=== PATIENT | male | born 1980 | race Caucasian/White ===

== ENCOUNTER 2017-06-02 23:39 | Emergency (ER) | payer SELFPAY ==
[~2017-06-02] VITALS: Ht 175.3 cm; Wt 99.8 kg
[2017-06-02 23:50] VITALS: BP 131/87
[2017-06-03 00:02] VITALS: BP 125/81
== END 2017-06-03 00:02 | disposition home or self-care (01) ==
LOC: MED 23:39
DX: L02.01 Cutaneous abscess of face (principal)
CPT/HCPCS: 99283

== ENCOUNTER 2018-03-24 22:08 | Emergency (ER) | payer MEDICAID ==
[~2018-03-24] VITALS: Ht 175.3 cm; Wt 99.8 kg
[2018-03-24 22:15] VITALS: BP 148/88
--- NOTE | 2018-03-24 22:21 | NUR ---
PT TAKEN TO BED 11
--- NOTE | 2018-03-24 22:32 | NUR ---
PT BIB SELF FOR ABCESS ON L CHEEK. PT STATES HE HAD IT DRAINED AT [facility] 2 DAYS AGO, SINCE THEN PAIN HAS INCREASED. PT REPORTS STABBING PAIN AT 10/10. HARD SWOLLEN MASS THAT IS TENDER TO TOUCH ON L CHEECK. NO EYRHTEMA PRESNT. ER TO SEE PT. SAFETY PRECAUTIONS IN PLACE, WILL CONTINUE TO MONITOR.
--- NOTE | 2018-03-24 22:42 | NUR ---
Dr. Ruth evaluating patient at bedside.
[2018-03-24] MEDS ORDERED: LIDOCAINE 1% 500 MG/50 ML VIAL INJ SCH (22:45)
[2018-03-24] MEDS ORDERED: SULFAMETH/TRIMETH DS 800/160MG 1 TAB PO ONE (22:45)
[2018-03-24] MEDS ORDERED: LIDOCAINE 2% 1000 MG/50 ML VIAL INJ ONE (22:54)
--- NOTE | 2018-03-24 23:05 | NUR ---
DR GOOD PERFORMING BEDSIDE PROCEDURE AT THIS TIME.
--- NOTE | 2018-03-24 23:17 | NUR ---
MAYCOL CRUZ COVERING WOUND WITH 4X4 GAUZE AT THIS TIME
[2018-03-24 23:30] VITALS: BP 138/82
--- NOTE | 2018-03-24 23:30 | NUR ---
Patient discharged with v/s stable. Written and verbal after care instructions given and explained. Patient alert, oriented and verbalized understanding of instructions. Ambulatory with steady gait. All questions addressed prior to discharge. ID band removed. Patient advised to follow up with PMD. Rx of IBUPROFEN 800MG AND BACTRIM 800MG-160MG given. Patient educated on indication of medication including possible reaction and side effects. Opportunity to ask questions provided and answered.
== END 2018-03-24 23:30 | disposition home or self-care (01) ==
LOC: MED 22:08
DX: L02.01 Cutaneous abscess of face (principal)
CPT/HCPCS: 10060; 99283; J2001

== ENCOUNTER 2018-03-26 14:28 | Emergency (ER) | payer MEDICAID ==
[~2018-03-26] VITALS: Ht 185.4 cm; Wt 100.0 kg
[2018-03-26 14:45] VITALS: BP 131/79
--- NOTE | 2018-03-26 16:39 | NUR ---
38 yo m bib self for recheck from abscess drainage on thursday to left cheek. denies n/v/d/fevers. still taking the abx prescribed here.
[2018-03-26 16:41] VITALS: BP 131/79
--- NOTE | 2018-03-26 16:42 | NUR ---
Patient discharged with v/s stable. Written and verbal after care instructions given and explained. Patient verbalized understanding. Ambulatory with steady gait. All questions addressed prior to discharge. Advised to follow up with PMD.
== END 2018-03-26 16:42 | disposition home or self-care (01) ==
LOC: MED 14:28
DX: L02.01 Cutaneous abscess of face (principal)
CPT/HCPCS: 99283

== ENCOUNTER 2018-07-06 03:50 | Emergency (ER) | payer SELFPAY ==
[~2018-07-06] VITALS: Ht 175.3 cm; Wt 95.3 kg
[2018-07-06 03:59] VITALS: BP 116/78
--- NOTE | 2018-07-06 04:02 | NUR ---
PT AMBULATED TO BED 4.
--- NOTE | 2018-07-06 04:11 | NUR ---
BIB SELF REPORTING WAKING UP WITH LEFT LOWER BACK PAIN AROUND 0000. STATES THE PAIN MOVES TOWARDS THE MIDDLE OF HIS BACK. DENIES PAINFUL URINATION OR FREQUENCY. NO NVD, FEVER, COUGH. DENIES OTHER SYMPTOMS AT THIS TIME. ERMD MADE AWARE. BED IN LOW LOCKED POSTION.
[2018-07-06] MEDS ORDERED: IBUPROFEN 800 MG TAB PO ONE (04:15)
[2018-07-06 06:12] VITALS: BP 116/78
== END 2018-07-06 05:06 | disposition home or self-care (01) ==
LOC: MED 03:50
DX: S39.012A Strain of muscle, fascia and tendon of lower back, initial encounter (principal); X58.XXXA Exposure to other specified factors, initial encounter; Y93.89 Activity, other specified; Y92.89 Other specified places as the place of occurrence of the external cause; Y99.8 Other external cause status
CPT/HCPCS: 72100; 99283

== ENCOUNTER 2019-03-18 16:59 | Emergency (ER) | payer SELFPAY ==
[~2019-03-18] VITALS: Ht 177.8 cm; Wt 81.6 kg
[2019-03-18 17:14] VITALS: BP 116/80
--- NOTE | 2019-03-18 17:27 | NUR ---
39 Y/O M C/O UPPER ABDOMINAL PAIN 10/10 WITH BLOATING. BOWEL SOUNDS ACTIVE ALL FOUR QUADRANTS, ABDOMEN FIRM TO TOUCH. PT HAS DIARRHEA X 1 DAY THAT HE STATES IS GREEN IN COLOR. PT DENIES N/V. PT ABLE TO DRINK NORMAL. PT ON MONITOR, POSITIONED FOR COMFORT. VSS. NKA
[2019-03-18] MEDS ORDERED: PANTOPRAZOLE 40 MG INJ VIAL IVP ONE (17:55)
--- NOTE | 2019-03-18 17:55 | NUR ---
PT TRANSFERRED TO XR VIA WHEELCHAIR
[2019-03-18 18:52] VITALS: BP 110/85
--- NOTE | 2019-03-18 18:52 | NUR ---
Patient discharged with v/s stable. Written and verbal after care instructions given and explained. Patient alert, oriented and verbalized understanding of instructions. Ambulatory with steady gait. All questions addressed prior to discharge. ID band removed. Patient advised to follow up with PMD. Rx of MINERAL OIL, MIRALAX, PROTONIX given. Patient educated on indication of medication including possible reaction and side effects. Opportunity to ask questions provided and answered.
== END 2019-03-18 18:52 | disposition home or self-care (01) ==
LOC: MED 16:59
DX: R10.10 Upper abdominal pain, unspecified (principal)
CPT/HCPCS: 74022; 96374; 99283; C9113

== ENCOUNTER 2021-01-20 23:28 | Emergency (ER) | payer SELFPAY ==
[~2021-01-20] VITALS: Ht 175.3 cm; Wt 100.2 kg
[2021-01-20 23:40] VITALS: BP 134/88
--- NOTE | 2021-01-20 23:44 | NUR ---
PT AMBULATED TO LOBBY TO A/W BED
[2021-01-21] MEDS ORDERED: FAMOTIDINE 20 MG/2 ML VIAL IVP ONE (01:35)
[2021-01-21] MEDS ORDERED: NACL 0.9% 1,000 ML IV ONE (01:35)
--- NOTE | 2021-01-21 01:40 | NUR ---
PT AMBULATED TO BED #11
--- NOTE | 2021-01-21 01:45 | NUR ---
BLOOD DRAWN VIA IV START AND GIVEN TO DOROTEO IT HELP DESK ANALYST.
--- NOTE | 2021-01-21 01:49 | NUR ---
PT TAKEN TO CT VIA W/C
[2021-01-21 02:26] LABS: BASOPHILS % (AUTO) 0.4 % (0.0-2.0); EOSINOPHILS % (AUTO) 0.1 % (0.0-4.0); HEMATOCRIT 48.7 % (36-52); LYMPHOCYTES % (AUTO) 9.8 % (20.5-51.1); MEAN CORPUSCULAR HEMOGLOBIN 30 pg (27-31); MEAN CORPUSCULAR HGB CONC 35 g/dL (33-37); MEAN CORPUSCULAR VOLUME 84.8 fL (80-94); MONOCYTES # (AUTO) 0.4 K/uL (0.8-1.0); MONOCYTES % (AUTO) 4.4 % (1.7-9.3); NEUTROPHILS # (AUTO) 8.3 K/uL (1.8-7.7); NEUTROPHILS % (AUTO) 85.3 % (42.2-75.2); PLATELET COUNT (AUTO) 351 K/uL (140-450); RED BLOOD CELL COUNT(AUTO) 5.74 MIL/uL (4.20-6.10); RED CELL DISTRIBUTION WIDTH 14.3 % (11.6-13.7); WHITE BLOOD COUNT (AUTO) 9.7 K/uL (4.8-10.8)
[2021-01-21] MEDS ORDERED: FAMOTIDINE 20 MG/2 ML VIAL ONE (02:46)
--- NOTE | 2021-01-21 02:47 | NUR ---
41 YO/M BIB SELF ACCOMPANIED BY SIGNIFICANT OTHER W C/O L SIDED ABDOMINAL PAIN 5/10 NON-RAD, DISCOMFORT/PRESSURE LIKE X3 DAYS. PT DENIES N/V/D, FEVERS OR CHILLS. PT DENIES URINE SYMPTOMS/PROBLEMS OR BOWEL PROBLEMS. PT LAYING IN BED LOCKED IN LOWEST POSITION. BREATHING EVEN AND UNLABORED. NAD NOTED, WILL CONTINUE TO MONITOR. PMH:DENIES NKA
--- NOTE | 2021-01-21 02:50 | NUR ---
PT REPORTS UNABLE TO PROVIDE URINE AT THIS TIME. WILL ATTEMPT LTR.
[2021-01-21 03:27] LABS: ALBUMIN 4.1 g/dL (3.4-5.0); ANION GAP 12.3 (8-16); CARBON DIOXIDE 30.8 mmol/L (21-32); CHOL/HDL RATIO 4.7 (1-4.5); POTASSIUM 4.1 mmol/L (3.5-5.1); TOTAL BILIRUBIN 0.6 mg/dL (0.0-1.0)
--- NOTE | 2021-01-21 03:46 | NUR ---
PT APPEARS TO BE RESTING W EYES CLOSED, BREAATHING EVEN AND UNLABORED. VSS. NAD NOTED WILL CONTINUE TO MONITOR.
[2021-01-21 05:01] VITALS: BP 119/89
[2021-01-21] MEDS ORDERED: FAMO-92 PO (05:27)
== END 2021-01-21 05:32 | disposition home or self-care (01) ==
LOC: MED 23:28
DX: K29.70 Gastritis, unspecified, without bleeding (principal); F17.210 Nicotine dependence, cigarettes, uncomplicated; F12.90 Cannabis use, unspecified, uncomplicated
CPT/HCPCS: 74176; 80053; 80061; 82150; 83690; 85025; 96361; 96374; 99284; J3490; J7030; 99283

== ENCOUNTER 2023-08-31 21:43 | Emergency (ER) | payer OTHER ==
[~2023-08-31] VITALS: Ht 175.3 cm; Wt 92.1 kg
[~2023-08-31 21:43] MED LIST: FAMO-92 PO
[2023-08-31 22:00] VITALS: BP 121/81; PULSE 93; RESP 18; TEMP 98; O2SAT 99
[2023-09-01] MEDS ORDERED: BACI-418 TP (07:39)
[2023-09-01] MEDS ORDERED: CEPH-588 PO (07:39)
== END 2023-08-31 23:39 | disposition left against medical advice (07) ==
LOC: MED 21:43
DX: R22.0 Localized swelling, mass and lump, head (principal); Z53.21 Procedure and treatment not carried out due to patient leaving prior to being seen by health care provider

== ENCOUNTER 2023-09-01 06:45 | Emergency (ER) | payer OTHER ==
[~2023-09-01] VITALS: Ht 175.3 cm; Wt 95.3 kg
[2023-09-01 06:50] VITALS: BP 122/70; PULSE 64; RESP 16; TEMP 98; O2SAT 99
[2023-09-01 07:07] VITALS: O2SAT 99
[2023-09-01] MEDS ORDERED: BACI-418 TP (07:39)
[2023-09-01] MEDS ORDERED: CEPH-588 PO (07:39)
[2023-09-01 08:24] VITALS: BP 122/70; PULSE 64; RESP 16; TEMP 98; O2SAT 99
== END 2023-09-01 08:24 | disposition home or self-care (01) ==
LOC: MED 06:45
DX: L02.01 Cutaneous abscess of face (principal); L03.211 Cellulitis of face; F17.200 Nicotine dependence, unspecified, uncomplicated; Z71.6 Tobacco abuse counseling; Z79.899 Other long term (current) drug therapy
CPT/HCPCS: 99283